=== PATIENT | female | born 1990 | race Caucasian/White ===

== ENCOUNTER 2021-08-16 05:13 | Inpatient (IN) | payer OTHER ==
[2021-08-16 06:19] LABS: HEMOGLOBIN 9.8 gm/dl (12.3-15.3); RED BLOOD COUNT 3.48 M/UL (4.00-5.10); WHITE BLOOD COUNT 12.6 K/UL (4.5-11.0)
[2021-08-16] MEDS ORDERED: HYDROCODON-ACE1 EAC6 PO (09:25)
[2021-08-16] MEDS ORDERED: COLACE 100MG C100 MG PO (09:25)
[2021-08-16] MEDS ORDERED: IBUPROFEN600 MG PO (09:25)
[2021-08-17] MEDS ORDERED: LABETALOL HCL100 MG PO (07:40)
[2021-08-17 08:14] LABS: HEMOGLOBIN 6.9 gm/dl (12.3-15.3)
[2021-08-18] MEDS ORDERED: HEMOCYTE324 MG PO (12:12)
== END 2021-08-18 15:06 | disposition home or self-care (01) | DRG 788 ==
LOC: OB 05:13
PROVIDERS: ADMIT Obstetrics & Gynecology
PROC: 10D00Z1 Extraction of Products of Conception, Low, Open Approach (ICD-10-PCS; principal; 2021-08-16 09:00)
DX: O36.63X0 Maternal care for excessive fetal growth, third trimester, not applicable or unspecified (principal); O99.02 Anemia complicating childbirth; D64.9 Anemia, unspecified; K59.00 Constipation, unspecified; J30.2 Other seasonal allergic rhinitis; O99.52 Diseases of the respiratory system complicating childbirth; Z20.822 Contact with and (suspected) exposure to COVID-19; O99.892 Other specified diseases and conditions complicating childbirth; Z37.0 Single live birth; Z3A.39 39 weeks gestation of pregnancy; Z82.49 Family history of ischemic heart disease and other diseases of the circulatory system; Z82.0 Family history of epilepsy and other diseases of the nervous system; O16.4 Unspecified maternal hypertension, complicating childbirth
CPT/HCPCS: 36415; 82800; 85014; 85018; 85025; 90471; 90715; C9113; J0690; J1885; J2274; J2370; J2405; J2590; J7120; U0002